=== PATIENT | male | born 1985 | race Two or more races ===

== ENCOUNTER 2023-12-11 08:13 | Outpatient (CLI) | payer OTHER ==
[2023-12-11 09:10] LABS: BASOPHILS # (AUTO) 0.1 K/uL (0.00-0.22); BASOPHILS % (AUTO) 1.2 % (0.0-2.0); EOSINOPHILS # (AUTO) 0.2 K/uL (0-0.4); EOSINOPHILS % (AUTO) 2.9 % (0.0-4.0); HEMATOCRIT 50.4 % (36-52); HEMOGLOBIN 17.8 g/dL (12.0-18.0); LYMPHOCYTES # (AUTO) 1.5 K/uL (2.0-11.5); LYMPHOCYTES % (AUTO) 28.4 % (20.5-51.1); MEAN CORPUSCULAR HEMOGLOBIN 30 pg (27-31); MEAN CORPUSCULAR HGB CONC 35 g/dL (33-37); MEAN CORPUSCULAR VOLUME 84.5 fL (80-94); MONOCYTES # (AUTO) 0.3 K/uL (0.8-1.0); MONOCYTES % (AUTO) 5.7 % (1.7-9.3); NEUTROPHILS # (AUTO) 3.2 K/uL (1.8-7.7); NEUTROPHILS % (AUTO) 61.8 % (42.2-75.2); PLATELET COUNT (AUTO) 187 K/uL (140-450); RED BLOOD CELL COUNT(AUTO) 5.97 MIL/uL (4.20-6.10); RED CELL DISTRIBUTION WIDTH 13.9 % (11.6-13.7); WHITE BLOOD COUNT (AUTO) 5.2 K/uL (4.8-10.8)
[2023-12-11 09:38] LABS: ALBUMIN 4.2 g/dL (3.4-5.0); ANION GAP 11.4 (8-16); CALCIUM 8.8 mg/dL (8.5-10.1); CARBON DIOXIDE 31.8 mmol/L (21-32); CHOL/HDL RATIO 5.5 (1-4.5); CREATININE 0.9 mg/dL (0.6-1.3); POTASSIUM 4.2 mmol/L (3.5-5.1); THYROID STIMULATING HORMONE 1.78 uIU/mL (0.34-3.74); TOTAL BILIRUBIN 2.3 mg/dL (0.0-1.0); TOTAL PROTEIN, SERUM 8.5 g/dL (6.4-8.2)
[2023-12-12 10:06] LABS: HEMOGLOBIN A1C 5.5 % (4.8-5.6)
[2023-12-19 15:33] LABS: VITAMIN D, 25-HYDROXY 11.8 ng/mL (30.0-100.0)
== END 2023-12-11 17:51 | disposition home or self-care (01) ==
LOC: MLB 08:13
PROVIDERS: ATTEND Internal Medicine
DX: Z00.01 Encounter for general adult medical examination with abnormal findings (principal); J30.9 Allergic rhinitis, unspecified; E55.9 Vitamin D deficiency, unspecified; R73.09 Other abnormal glucose
CPT/HCPCS: 36415; 80053; 82306; 83036; 84443; 85025; 86003

== ENCOUNTER 2024-04-11 08:29 | Outpatient (CLI) | payer OTHER | END 2024-04-11 20:29 | disposition home or self-care (01) | LOC: MUS 08:29 | PROVIDERS: ATTEND Internal Medicine | DX: K75.81 Nonalcoholic steatohepatitis (NASH) (principal); R94.5 Abnormal results of liver function studies; R16.1 Splenomegaly, not elsewhere classified; K82.9 Disease of gallbladder, unspecified; K76.9 Liver disease, unspecified | CPT/HCPCS: 76700 ==